=== PATIENT | male | born 2000 | race Caucasian/White ===

== ENCOUNTER 2021-05-10 09:37 | Outpatient (CLI) | payer OTHER | END 2021-05-10 09:38 | disposition home or self-care (01) | LOC: BICCT 09:37 | PROVIDERS: ATTEND Neurological Surgery | DX: M54.50 Low back pain, unspecified (principal); M51.26 Other intervertebral disc displacement, lumbar region; M51.27 Other intervertebral disc displacement, lumbosacral region; M51.37 Other intervertebral disc degeneration, lumbosacral region | CPT/HCPCS: 72110; 72131 ==